=== PATIENT | male | born 1995 | race Hispanic/Latino ===

== ENCOUNTER 2017-01-23 19:11 | Emergency (ER) | payer OTHER ==
[2017-01-23 19:34] VITALS: BP 113/64; PULSE 62; RESP 16; TEMP 98.1; O2SAT 98
--- NOTE | 2017-01-23 20:00 | ED PDOC ---
HPI: General Adult Time Seen by Provider: 01/23/17 19:35 Chief Complaint (Nursing): Upper Extremity Problem/Injury Chief Complaint (Provider): Right hand injury History Per: Patient History/Exam Limitations: no limitations Onset/Duration Of Symptoms: Days (x 1) Current Symptoms Are (Timing): Still Present Additional Complaint(s): Hira is a 21 y/o male who states earlier today while at the gym, a heavy weight fell on his right middle finger. Patient now having right finger pain and bleeding. PMD: Unknown Past Medical History Reviewed: Historical Data, Nursing Documentation, Vital Signs Vital Signs: Last Vital Signs Temp 98.1 F 01/23/17 19:31 Pulse 62 01/23/17 19:31 Resp 16 01/23/17 19:31 BP 113/64 01/23/17 19:31 Pulse Ox 98 01/23/17 21:45 - Family History Family History: States: No Known Family Hx - Home Medications Home Medications: Ambulatory Orders Medication Instructions Recorded Amoxicillin/Clavulanate [Augmentin 1 tab PO Q8 #9 tab 01/23/17 500 MG-125 MG] - Allergies Allergies/Adverse Reactions: Allergies Allergy/AdvReac Type Severity Reaction Status Date / Time pecan nut Allergy ANAPHYLAXIS Verified 01/23/17 19:34 walnut Allergy ANAPHYLAXIS Verified 01/23/17 19:34 Review of Systems ROS Statement: Except As Marked, All Systems Reviewed And Found Negative Musculoskeletal: Positive for: Hand Pain (Right finger pain and bleeding) Physical Exam - Reviewed Nursing Documentation Reviewed: Yes Vital Signs Reviewed: Yes - Physical Exam Appears: Positive for: Well, Non-toxic, No Acute Distress Extremity: Positive for: Normal ROM (Full ROM actively), Tenderness (Tenderness on palpation to distal phalanx of right 3rd digit), Other (Small subungual hematoma on the right 3rd digit). Negative for: Deformity - ECG O2 Sat by Pulse Oximetry: 98 (RA) Pulse Ox Interpretation: Normal Medical Decision Making Medical Decision Making: Time: 19:37 Initial Plan: --Pending X-Rays Right Hand and 3rd Digit --X Ray reviewed: finger fracture --Patient provided with splint and will be given Rx for Augmentin Time: 20:30 Clinical Impression: Subungual hematoma, Finger fracture Upon provider evaluation patient is medically stable, and requires no further treatment in the ED at this time. Patient will be discharged with Rx for Augmentin. Counseling was provided and all questions were answered regarding diagnosis and need for follow up with PMD. There is agreement to discharge plan. Return if symptoms persist or worsen. Scribe Attestation: Documented by Luisa Velazco, acting as a scribe for Daniel Bethea PA-C. Provider Scribe Attestation: All medical record entries made by the Scribe were at my direction and personally dictated by me. I have reviewed the chart and agree that the record accurately reflects my personal performance of the history, physical exam, medical decision making, and the department course for this patient. I have also personally directed, reviewed, and agree with the discharge instructions and disposition. Procedures - Time-Out Type of Procedure: subungual hematoma evacuation Site of Procedure: R 3rd digit Correct Patient (with visual ID + MR# on ID Band): Yes Correct Procedure: Yes Correct Site Marked: Yes PA/Tech: [place] - Nail Trepanation Nail Trepanation Location: R 3rd digit Method of Drainage: nail cauterized Sterile Dressing Applied: Yes Finger Splint: Yes Progress: Blood was expressed from nail. Disposition - Clinical Impression Clinical Impression: Subungual hematoma, Finger fracture - Patient ED Disposition Is Patient to be Admitted: No Counseled Patient/Family Regarding: Studies Performed, Diagnosis, Need For Followup - Disposition Referrals: Yolanda Ramos [Outside] Disposition: Routine/Home Disposition Time: 20:30 Condition: STABLE Prescriptions: Amoxicillin/Clavulanate [Augmentin 500 MG-125 MG] 1 tab PO Q8 #9 tab Instructions: Subungual Hematoma (ED), Finger Fracture (ED) Forms: Yolanda Tian (Finnish), [facility] ED School/Work Excuse Print Language: TAIWANESE
--- NOTE | 2017-01-24 11:50 | RAD ---
PROCEDURE: Right Hand Radiographs. HISTORY: trauma COMPARISON: None. FINDINGS: BONES: Acute fracture distal tuft region right 3rd digit. JOINTS: Normal. No osteoarthritic changes. SOFT TISSUES: Soft tissue swelling attests to the acuity of the fracture. OTHER FINDINGS: None. IMPRESSION: Acute fracture distal phalanx right 3rd digit.
== END 2017-01-23 20:42 | disposition home or self-care (01) ==
LOC: H.ER 19:11
DX: S62.632A Displaced fracture of distal phalanx of right middle finger, initial encounter for closed fracture (principal); W22.8XXA Striking against or struck by other objects, initial encounter; Y92.89 Other specified places as the place of occurrence of the external cause